=== PATIENT | female | born 1945 | race Caucasian/White ===

== ENCOUNTER 2023-09-27 10:25 | Emergency (ER) | payer MEDICARE, OTHER, SELFPAY ==
[2023-09-27 10:40] VITALS: BP 158/64; PULSE 96; RESP 20; TEMP 37.3; O2SAT 100
--- NOTE | 2023-09-27 10:43 | ED.URI ---
HPI - URI/Sore Throat General Chief Complaint: Upper Respiratory Infection Stated Complaint: Nausea/Sore Throat Time Seen by Provider: 09/27/23 10:44 Source: patient Mode of arrival: ambulatory Limitations: no limitations History of Present Illness HPI Narrative: 78 yo F presents with c/o cough, runny nose, sore throat, fatigue to 5 days. Afebrile. Denies CP/SOB. Tried OTC cough medication but made her nauseated. Pt requesting strep test. All systems reviewed and negative except as noted above. Related Data Home Medications Medication Instructions Recorded Confirmed hyoscyamine sulfate 0.125 mg 0.125 mg sublingual Q6-8H PRN 09/27/23 09/27/23 sublingual tablet Diarrhea latanoprost 0.005 % eye drops 1 drp EACH EYE HS 09/27/23 09/27/23 Allergies Allergy/AdvReac Type Severity Reaction Status Date / Time milk Allergy Unknown Verified 09/27/23 10:45 Review of Systems Review of Systems: CONSTITUTIONAL: Denies fever, chills, or sweats. EYES: Denies visual changes, redness, or discharge. ENT: Reports rhinorrhea, congestion, sore throat. Denies otalgia. CARDIOVASCULAR: Denies chest pain, palpitations, or edema. RESPIRATORY: Reports cough. Denies dyspnea. GASTROINTESTINAL: Denies abdominal pain, nausea, vomiting, or diarrhea. GENITOURINARY: Denies dysuria or hematuria. SKIN: Denies rash or itching. MUSCULOSKELETAL: Denies back pain, joint pain, or myalgia. NEUROLOGIC: Denies headache, numbness, or weakness. PSYCHIATRIC: Denies anxiety or depression. All other systems reviewed are negative, except as documented in HPI. PMFSH Comments At time of signature, agree with nursing past medical, surgical, social and family history. There is no relevant family history pertinent to the presenting complaint. Exam Narrative: GENERAL: This is a well-nourished, well-developed patient, in no apparent distress. HEAD: normocephalic, atraumatic. EYES: PERRL. Sclera clear/white. Vision is grossly intact. EARS: External ears normal, auditory canals clear and without drainage, TMs normal without perforation. Hearing grossly intact. NOSE: External nose normal with clear nasal drainage, mild erythema to nares without swelling. THROAT: Mucous membranes moist, clear PND. no significant swelling or exudates. NECK: Neck supple, non-tender without lymphadenopathy, masses or thyromegaly. CARDIOVASCULAR: Regular rate and rhythm without murmurs, gallops, or rubs. RESPIRATORY: Clear to auscultation. Breath sounds equal bilaterally. No wheezes, rales, or rhonchi. SKIN: warm, Dry, intact with no suspicious lesions or rash, good texture and turgor. NEURO: awake, alert, and oriented to person, place and time. There were no obvious focal neurologic abnormalities. EXTREMITIES: No joint tenderness, effusion, or edema noted. Course Course Level of Care: Express Care Visit Vital Signs Vital signs: Vital Signs Temperature 37.3 C 09/27/23 10:40 Pulse Rate 96 09/27/23 10:40 Respiratory Rate 20 09/27/23 10:40 Blood Pressure 158/64 H 09/27/23 10:40 Pulse Oximetry 100 09/27/23 10:40 Oxygen Delivery Room Air 09/27/23 10:40 Temperature 37.3 C 09/27/23 10:40 Pulse Rate 96 09/27/23 10:40 Respiratory Rate 20 09/27/23 10:40 Blood Pressure 158/64 H 09/27/23 10:40 Pulse Oximetry 100 09/27/23 10:40 Oxygen Delivery Room Air 09/27/23 10:40 reviewed. MDM - URI/Sore Throat MDM Narrative Medical decision making narrative: neg strep test. pt well appearing, clear lung sounds. afebrile. recommend she treat with OTC for viral URI. Patient is aware of diagnosis, understands and agrees to treatment plan. Anticipatory guidance given. Patient agrees to follow-up as directed and is aware of reasons to seek care at the emergency department. Portions of this record may have been created with voice recognition software Differential Diagnosis Differential diagnosis: Likely upper respiratory infection and viral i
== END 2023-09-27 11:00 | disposition home or self-care (01) ==
PROVIDERS: Emergency Provider Nurse Practitioner Family; PCP Internal Medicine
DX: J06.9 Acute upper respiratory infection, unspecified (principal)
CPT/HCPCS: 87081; 87880; 99213; G0463